=== PATIENT | male | born 2005 | race Caucasian/White ===

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

== ENCOUNTER 2023-11-29 10:03 | Emergency (ER) | payer OTHER, SELFPAY ==
[2023-11-29] VITALS (7 sets, daily range): BP systolic 106–156; BP diastolic 54–78; PULSE 66–100; RESP 13–16; TEMP 36.7; O2SAT 98–100; BMI 28.3
--- NOTE | 2023-11-29 10:12 | ECG_ITS ---
APPROVED REPORT Exam: Resting ECG HR:90 bpm ECG Measurements Heart Rate 90 AXES NC 164 P 70 QRSd 92 QRS 84 QT 324 T 48 QTc 372 Conclusion SINUS RHYTHM Electronically signed by : DAVID JO, 11/29/2023 12:41:23
--- NOTE | 2023-11-29 10:19 | CT_ITS ---
FINAL REPORT TECHNIQUE: Thin section axial CT images with coronal and sagittal reformats were performed after the administration of IV contrast. This study was performed with techniques to keep radiation doses as low as reasonably achievable (ALARA). Individualized dose reduction techniques using automated exposure control or adjustment of mA and/or kV according to the patient''s size were employed. 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 No fluid collection is seen to suggest an abscess. The oropharynx, hypopharynx, larynx are unremarkable. There are several bilateral less than 5 mm thyroid nodules. There is no neck mass or adenopathy. IMPRESSION: Prominent nasopharyngeal soft tissue, likely lymphoid hyperplasia. Reviewed, Interpreted and Dictated by Felipe Hanks III, MD Transcribed by Shae Whalen Authenticated and [facility]
--- NOTE | 2023-11-29 10:33 | HMH.EDGENADL ---
Discharge Plan Disposition Patient Disposition: Home, Self-Care Prescriptions Prescriptions: New amoxicillin-pot clavulanate 875-125 mg tablet 1 tab PO BID 7 Days Qty: 14 0RF Referrals Follow up/Referrals: Provider,Referral, MD [Primary Care Provider] - See instructions Activity Restrictions/Add. Instructions Additional Instructions/Restrictions: Take antibiotic twice daily for 7 days. Call your family doctor to establish care for this visit to the emergency department and schedule follow-up within 48 hours to ensure improvement. If you have any worsening of your condition or any other concerning signs or symptoms, return to the emergency department or your primary care doctor for further evaluation. Clinical Impressions Clinical Impression: Peritonsillar cellulitis Discharge ED Provider: René Georges General Adult HPI General Chief complaint: PAIN Stated complaint: Left jaw pain going down neck Time Seen by Provider: 11/29/23 10:13 Mode of Arrival: Ambulatory Source of Information: Patient Limitations: No Limitations Description of Symptoms (Recalled from ER Triage Doc. by RN): pt presents to ED with c/o left sided jaw pain. symptoms began yesterday approx 5 pm. History of Present Illness HPI narrative: Is a 18-year-old male no relevant medical history presenting with left-sided ear and neck pain. Started yesterday around 5 PM. Associated with trismus pain opening the jaw, but able to do so. No voice changes, difficulty breathing, difficulty swallowing. Pain is mild to moderate intensity, starts at left TMJ/left ear and radiates down toward his left collarbone. Has not taken anything or noticed anything that makes it better. No fevers or chills, vomiting, difficulty or pain with range of motion of neck, outward signs of injury or deformity, history of this in the past. Please note that above description of symptoms, in this electronic medical record under categorization of recalled from ER triage doctor by RN are reflective of an initial nursing assessment, however, is not reflective of my full history and physical exam that was personally taken and clarified. Consequentially, this preceding description of symptoms, which may include the patient's categorized chief complaint in the EMR, do not reflect my personal clinical impression, and the ultimate description of history of present illness and patient stated complaints should be deferred to this section of the note. Unless stated otherwise or congruent with this section of the note, additional signs, symptoms, or incongruence should be interpreted as inaccurate with my clinical impression. Related Data Previous Rx's Medication Instructions Recorded amoxicillin 875 mg-potassium 1 tab PO BID 7 days #14 tabs 11/29/23 clavulanate 125 mg tablet Allergies Allergy/AdvReac Type Severity Reaction Status Date / Time red dye [RED DYE] Allergy Unknown VOMITS AND Verified 04/25/20 13:13 BREAKS OUT [facility] Disclaimer: The information contained in this section may have been updated after the patient was seen, as this information can be updated by other users. Social History Smoking Status: Current every day smoker alcohol intake: never current occupational status: unemployed Travel in the last 8 weeks: None ROS Obtained: Yes All systems reviewed & no additional complaints except as documented Physical Exam General General appearance: alert and in no apparent distress Head Head exam: atraumatic and normocephalic Eye Eye exam: Present normal appearance, PERRL and EOMI ENT ENT exam: Present mucous membranes moist and other (Asymmetric palate elevation with deviation of the uvula toward the right. Flattening of left tonsillar pillar. Tender and fluctuant. No range of motion of neck difficulties, left stridor, outward signs of abnormality. Tolerating secretions without issue.) Neck Neck exam: Present normal inspection, full ROM and trachea midline Respiratory Respiratory exam: Absent respiratory distress, wheezes, stridor, accessory muscle use or prolonged expiratory phase Cardiovascular Cardiovascular exam: Present normal rhythm Abdominal Exam Abdominal exam: Present soft; Absent distention, tenderness, guarding, rebound or rigidity Extremities Exam Extremities exam: Absent edema Neurological Exam Neurological exam: Present alert, oriented X3, CN II-XII intact and normal gait; Absent motor sensory deficit Skin Skin exam: Present warm and dry; Absent diaphoresis or erythema Medical Decision Making Medical Records Medical records reviewed: Yes I reviewed the patient's medical records. John Inquiry Pt receiving controlled substance: No John was queried for this patient: No Vital Signs: 11/29/23 10:05 11/29/23 11:00 11/29/23 11:30 Temperature 98.0 F Temperature Source Oral Pulse Rate 73 66 Pulse Rate [Left Radial] 100 H Respiratory Rate 13 Blood Pressure 109/58 L 106/64 L Blood Pressure [Right Arm] 156/78 H Blood Pressure Mean [Right Arm] 104 02 Sat by Pulse Oximetry 100 99 98 Oxygen Delivery Method Room Air Room Air Room Air 11/29/23 12:00 11/29/23 12:30 Temperature Temperature Source Pulse Rate 67 82 Pulse Rate [Left Radial] Respiratory Rate Blood Pressure 111/63 119/54 L Blood Pressure [Right Arm] Blood Pressure Mean [Right Arm] 02 Sat by Pulse Oximetry 98 98 Oxygen Delivery Method Room Air Room Air Lab Data Lab Results 11/29/23 10:22: Group A Strep Rapid Negative 11/29/23 10:30: WBC 10.7, RBC 5.75, Hgb 16.9, Hct 51.5, MCV 89.5, MCH 29.4, MCHC 32.8, RDW 13.7, Plt Count 185, MPV 8.8, Neut % (Auto) 76.3, Lymph % (Auto) 16.7, [place] % (Auto) 3.2, Eos % (Auto) 2.7, Baso % (Auto) 1.1, Neut # (Auto) 8.2 H, Lymph # (Auto) 1.8, [place] # (Auto) 0.3, Eos # (Auto) 0.3, Baso # (Auto) 0.1, Sodium 139, Potassium 3.7, Chloride 104, Carbon Dioxide 26, Anion Gap 12.7, BUN 13, Creatinine 1.00, Estimated Creat Clear 125, Estimated GFR 95, Est GFR ( Amer) 115, Glucose 106 H, Lactate 1.2, Calcium 9.8, Total Bilirubin 1.7 H, AST 29, ALT 32, Alkaline Phosphatase 94, Total Protein 7.8, Albumin 4.6, Globulin 3.2, Albumin/Globulin Ratio 1.4 11/29/23 10:30 11/29/23 10:30 Orders (Tests/Meds): ED MEDICATIONS Discontinued Medications Generic Name Dose Route Start Last Admin Trade Name Marivel PRN Reason Stop Dose Admin Dexamethasone 10 mg 11/29/23 12:41 11/29/23 12:46 Dexamethasone 4mg Tablet PO 11/29/23 12:42 10 mg ONCE ONE Administration Iopamidol 75 ml 11/29/23 10:36 11/29/23 10:37 Iopamidol-370 (76%);100ml Bottle IV 11/29/23 10:37 75 ml ONCE ONE Administration Ketorolac Tromethamine 15 mg 11/29/23 10:37 11/29/23 10:51 Ketorolac 30mg/Ml Vial IV 11/29/23 10:38 15 mg ONCE ONE Administration Sodium Chloride 10 ml 11/29/23 10:36 11/29/23 10:37 Sodium Chloride 0.9% 10ml Syr (Rad Only) IV 11/29/23 10:37 10 ml ONCE ONE Administration ORDERS Category Date Time Status CT soft tissue neck w con Stat Cat Scan 11/29/23 10:19 Taken CBC w/Auto Diff [Complete Blood Count Auto Diff] Stat Lab 11/29/23 10:30 Completed CMP [Comprehensive Metabolic Panel] Stat Lab 11/29/23 10:30 Completed Lactic Acid Stat Lab 11/29/23 10:30 Completed Strep Scrn Group A (Rapid) Stat Lab 11/29/23 10:22 Completed Blood Culture Stat Micro 11/29/23 10:30 Received Strep Screen Confirmation Stat Micro 11/29/23 10:22 Received Medical Decision Narrative: Is a 18-year-old male no relevant medical history presenting with left-sided ear and neck pain. Started yesterday around 5 PM. Associated with trismus pain opening the jaw, but able to do so. No voice changes, difficulty breathing, difficulty swallowing. Pain is mild to moderate intensity, starts at left TMJ/left ear and radiates down toward his left collarbone. Has not taken anything or noticed anything that makes it better. No fevers or chills, vomiting, difficulty or pain with range of motion of neck, outward signs of injury or deformity, history of this in the past. History was obtained via conversation with patient. On arrival, patient hemodynamically stable, alert, oriented x4, appropriate, GCS 15, moving all extremities spontaneously, pupils equal and reactive to light. Full physical exam performed and significant for asymmetric palate elevation with flattening of the left tonsillar pillar and deviation of the uvula to the right. No lymphadenopathy. Patient does have trismus with palpation of left TMJ with jaw opening. No stridor, range of motion abnormalities, meningismus, outward signs of abnormality, or abnormal otic exam findings.. 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 Patient was given Decadron p.o. for symptomatic management and correction of underlying abnormalities. Workup independently interpreted and significant for nonactionable hematologic labs. CT of the neck with what appears to be phlegmon in the left peritonsillar region. No obvious abscess. Radiology on initial preliminary read did not mention any concern for fluid collection. See radiology read for full review of final results. On reevaluation, patient resting comfortably in bed. Given patient presentation, workup, history, this most likely represents peritonsillar infection. Because patient at baseline without signs or symptoms of clinical decompensation, deemed appropriate for discharge. Results were relayed to patient who voiced understanding and were agreeable to outpatient management and follow up. I discussed my clinical impression with patient and answered all questions. At this time, the evidence for any other entities in the differential is insufficient to warrant any further testing or ED observation. This was explained as well. Advisory was given that persistent or worsening symptoms require further evaluation. I confirmed the understanding of this discussion. Critical Care Critical Care Time Critical Care Time: No
--- NOTE | 2023-11-29 10:35 | PC.NURSE ---
pt to ct at this time
[2023-11-29] MEDS: SODIUM CHLORIDE 0.9% 10ML SYR (RAD ONLY) 10 ML IV (10:37)
[2023-11-29] MEDS: IOPAMIDOL-370 (76%);100ML BOTTLE 75 ML IV (10:37)
[2023-11-29 10:41] LABS: Basophils # 0.1 K/mm3 (0-0.2); Basophils % 1.1 % (0.1-2.0); Eosinophils # 0.3 K/mm3 (0.0-0.4); Eosinophils % 2.7 % (0.1-12.0); Hematocrit 51.5 % (42.0-52.0); Hemoglobin 16.9 g/dL (14.1-18.0); Lymphocytes # 1.8 K/mm3 (0.7-4.5); Lymphocytes % 16.7 % (10-50); Mean Corpuscular HGB Conc 32.8 g/dL (31.8-35.4); Mean Corpuscular Hemoglobin 29.4 pg (27.0-31.2); Mean Corpuscular Volume 89.5 fl (80-94); Mean Platelet Volume 8.8 fl (7.4-10.4); Monocytes # 0.3 K/mm3 (0.1-1.0); Monocytes % 3.2 % (1.7-9.3); Neutrophils # 8.2 K/mm3 (1.8-7.8); Neutrophils % 76.3 % (37.0-80.0); Platelet Count 185 K/mm3 (142-424); Red Blood Count 5.75 M/mm3 (4.60-6.20); Red Cell Distribution Width 13.7 % (11.5-17.5); White Blood Count 10.7 K/mm3 (4.5-13.0)
[2023-11-29 10:49] LABS: Lactic Acid 1.2 mmol/L (0.7-2.1)
[2023-11-29 10:50] LABS: Alanine Aminotransferase 32 U/L (12-78); Albumin Level 4.6 g/dl (3.5-5.0); Albumin/Globulin Ratio 1.4 (1.1-1.8); Alkaline Phosphatase 94 U/L (38-126); Anion Gap 12.7 mEq/L (5-15); Aspartate Amino Transferase 29 U/L (17-59); Bilirubin,Total 1.7 mg/dl (0.2-1.3); Blood Urea Nitrogen 13 mg/dl (9-20); Calcium 9.8 mg/dl (8.4-10.2); Carbon Dioxide 26 mmol/L (22.0-30.0); Chloride 104 mmol/L (98-107); Creatinine Clearance Estimated 125 mL/min (50-200); Estimated Glomerular Filt Rate 95 ml/min (>60); GFR (African American) 115 ML/MIN (>60); Globulin 3.2 g/dL (1.3-3.2); Glucose 106 mg/dl (74-100); Potassium 3.7 mmoL/L (3.5-5.1); Sodium 139 mmol/L (136-145); Total Protein,Serum 7.8 g/dl (6.3-8.2)
[2023-11-29] MEDS: KETOROLAC 30MG/ML VIAL 15 MG IV (10:51)
[2023-11-29 11:17] LABS: Strep Scrn Group A (Rapid) Negative (Negative)
--- NOTE | 2023-11-29 11:45 | PC.NURSE ---
ROUNDED ON PT NO NEEDS AT THIS TIME CALL LIGHT IN REACH
[2023-11-29] MEDS: DEXAMETHASONE 4MG TABLET 10 MG PO (12:46)
--- NOTE | 2023-11-29 12:50 | PC.NURSE ---
MOLLY IS ROUNDING ON PT
== END 2023-11-29 13:19 | disposition home or self-care (01) ==
PROVIDERS: Emergency Provider Emergency Medicine
DX: J36 Peritonsillar abscess; R68.84 Jaw pain; M54.2 Cervicalgia; H92.02 Otalgia, left ear; F17.210 Nicotine dependence, cigarettes, uncomplicated
CPT/HCPCS: 70491; 80053; 83605; 85025; 87040; 87430; 93005; 96374; 99285; Q9967

== ENCOUNTER 2024-06-06 14:39 | Emergency (ER) | payer SELFPAY ==
[2024-06-06 14:40] VITALS: BP 146/94; PULSE 79; RESP 18; TEMP 36.6; O2SAT 98; BMI 29.2
--- NOTE | 2024-06-06 14:41 | ED_ITS ---
Discharge Plan Prescriptions Prescriptions: New amoxicillin-pot clavulanate 875-125 mg tablet 1 tab PO BID Qty: 20 0RF No Action amoxicillin-pot clavulanate 875-125 mg tablet 1 tab PO BID 7 Days Qty: 14 0RF Referrals Follow up/Referrals: Provider,Referral, [Primary Care Provider] - See instructions Activity Restrictions/Add. Instructions Additional Instructions/Restrictions: As we discussed please call make an appointment with a dentist to have the evaluation for your tooth pain and possible extraction. I have called in an antibiotic for you please take it till it is complete. Return for any worsening signs or symptoms including difficulty to speak talk or breathe or fever increasing pain. Clinical Impressions Clinical Impression: Dentalgia, Dental caries Instructions Patient Instructions: DI for Tooth Decay, DI for Dental Pain Print Language Print Language: Azeri Discharge ED Provider: Wyatt Corey General Adult HPI <MIRANDA Rodriguez - Last Filed: 06/06/24 15:00> General Chief complaint: Dental/Oral Stated complaint: jaw/ear pain, L side Time Seen by Provider: 06/06/24 14:41 History of Present Illness HPI narrative: Patient presents for evaluation of tooth pain. Patient has had left lower molar pain for approximately a month. He has tried Orajel and it works intermittently. However patient was reading about dental pain on [employer] and got worried that he might have an abscess that could go to his brain. He denies any fever chills hemoptysis hematochezia melena difficulty with phonation difficulty with swallowing. He also states pain radiates to his left ear. But he has no loss of hearing. Related Data Previous Rx's ?Medication ?Instructions ?Recorded amoxicillin 875 mg-potassium 1 tab PO BID 7 days #14 tabs 11/29/23 clavulanate 125 mg tablet amoxicillin 875 mg-potassium 1 tab PO BID #20 tabs 06/06/24 clavulanate 125 mg tablet Allergies Allergy/AdvReac Type Severity Reaction Status Date / Time red dye (RED DYE) Allergy Unknown VOMITS AND Verified 04/25/20 13:13 BREAKS OUT [facility] <MIRANDA Rodriguez - Last Filed: 06/06/24 15:00> [facility] Disclaimer: The information contained in this section may have been updated after the patient was seen, as this information can be updated by other users. Social History (Updated 06/06/24 @ 15:00 by MIRANDA Rodriguez) Smoking Status: Current every day smoker alcohol intake: never current occupational status: unemployed Travel in the last 8 weeks: None Other Medical History Have you received the Flu Vaccine for this season: No Have you received the Pneumonia Vaccine: No <MIRANDA Rodriguez - Last Filed: 06/06/24 15:00> ROS Obtained: Yes Systems reviewed as appropriate & no additional complaints except as documented Physical Exam <MIRANDA Rodriguez - Last Filed: 06/06/24 15:00> General General appearance: alert and in no apparent distress Respiratory Respiratory exam: Present normal lung sounds bilaterally Cardiovascular Cardiovascular exam: Present regular rate Neurological Exam Neurological exam: Present alert and oriented X3 Medical Decision Making <MIRANDA Rodriguez - Last Filed: 06/06/24 15:00> Medical Records Screening: Per USPSTF and CDC recommendations, given the prevalence of disease in our region, it is our hospital?s policy to screen for HIV and viral Hepatitis for all patients aged 18 and over and those with ongoing risk factors. John Inquiry Pt receiving controlled substance: No Vital Signs: 06/06/24 14:40 06/06/24 14:56 Temperature 97.9 F 97.9 F Temperature Source Oral Oral Pulse Rate 75 Pulse Rate [Radial] 79 Respiratory Rate 18 16 Blood Pressure 140/90 Blood Pressure [Right Arm] 146/94 H Blood Pressure Mean [Right Arm] 111 Blood Pressure Source Automatic Cuff Blood Pressure Source [Right Arm] Automatic Cuff Blood Pressure Position [Right Arm] Sitting 02 Sat by Pulse Oximetry 98 Oxygen Delivery Method Room Air Room Air Orders (Tests/Meds): ED MEDICATIONS Generic Name Dose Route Start Last Admin Trade Name Freq PRN Reason Stop Dose Admin Amoxicillin/Clavulanate Potassium 1 each 06/06/24 14:48 06/06/24 15:00 Amoxicillin/Clavulanate Potassium 875/125mg Tablet PO 06/06/24 14:49 1 each ONCE ONE Administration ORDERS Category Date Time Status HIV (1&2) Antibody Rapid Stat Lab 06/06/24 14:46 Ordered Hep C Ab with Reflex to RNA Stat Lab 06/06/24 14:46 Ordered Medical Decision Narrative: In summary patient is a 19-year-old male who presents to the emergency department for evaluation of dentalgia. Patient is hemodynamically stable upon arrival, afebrile. Physical exam is remarkable for dental caries of several teeth with the offending tooth being the left lower second molar. There is no gingivitis there is no abscess the floor of his mouth is supple with no woodiness he has no cervical lymphadenopathy. Tympanic membrane on the left is normal and external auditory canal is normal. Differential diagnosis includes dentalgia versus infection etc. Initial workup with labs and imaging was considered however patient has no red flags of developing abscess currently thus deferred. Initial interventions include Augmentin p.o. Given his benign appearing GONGORA and no red flags for any deep space infection patient is appropriate for discharge and referral to dentistry with a prescription of Augmentin with first dose given here and strict return precautions. <Wyatt Corey MD - Last Filed: 06/06/24 15:02> Vital Signs: 06/06/24 14:40 06/06/24 14:56 Temperature 97.9 F 97.9 F Temperature Source Oral Oral Pulse Rate 75 Pulse Rate [Radial] 79 Respiratory Rate 18 16 Blood Pressure 140/90 Blood Pressure [Right Arm] 146/94 H Blood Pressure Mean [Right Arm] 111 Blood Pressure Source Automatic Cuff Blood Pressure Source [Right Arm] Automatic Cuff Blood Pressure Position [Right Arm] Sitting 02 Sat by Pulse Oximetry 98 Oxygen Delivery Method Room Air Room Air Orders (Tests/Meds): ED MEDICATIONS Generic Name Dose Route Start Last Admin Trade Name Freq PRN Reason Stop Dose Admin Amoxicillin/Clavulanate Potassium 1 each 06/06/24 14:48 06/06/24 15:00 Amoxicillin/Clavulanate Potassium 875/125mg Tablet PO 06/06/24 14:49 1 each ONCE ONE Administration ORDERS Category Date Time Status HIV (1&2) Antibody Rapid Stat Lab 06/06/24 14:46 Ordered Hep C Ab with Reflex to RNA Stat Lab 06/06/24 14:46 Ordered Medical Decision Narrative: In summary patient is a 19-year-old male who presents to the emergency department for evaluation of dentalgia. Patient is hemodynamically stable upon arrival, afebrile. Physical exam is remarkable for dental caries of several teeth with the offending tooth being the left lower second molar. There is no gingivitis there is no abscess the floor of his mouth is supple with no woodiness he has no cervical lymphadenopathy. Tympanic membrane on the left is normal and external auditory canal is normal. Differential diagnosis includes dentalgia versus infection etc. Initial workup with labs and imaging was considered however patient has no red flags of developing abscess currently thus deferred. Initial interventions include Augmentin p.o. Given his benign appearing GONGORA and no red flags for any deep space infection patient is appropriate for discharge and referral to dentistry with a prescription of Augmentin with first dose given here and strict return precautions. I was consulted by the JANEE, and we discussed the complexity of the problems being addressed. I approved the treatment and management plan for this patient's care in the emergency department, thus performing a substantive portion of the medical decision making. Wyatt Corey MD Critical Care <MIRANDA Rodriguez - Last Filed: 06/06/24 15:00> Critical Care Time Critical Care Time: No
[2024-06-06 14:56] VITALS: BP 140/90; PULSE 75; RESP 16; TEMP 36.6; O2SAT 98
[2024-06-06] MEDS: AMOXICILLIN/CLAVULANATE POTASSIUM 875/125MG TABLET 1 EACH PO (15:00)
== END 2024-06-06 15:03 | disposition home or self-care (01) ==
PROVIDERS: Emergency Provider Emergency Medicine
DX: K02.9 Dental caries, unspecified (principal); K08.89 Other specified disorders of teeth and supporting structures; H92.02 Otalgia, left ear
CPT/HCPCS: 99283

== ENCOUNTER 2024-06-16 01:19 | Emergency (ER) | payer SELFPAY ==
[2024-06-16 01:30] VITALS: BP 150/105; PULSE 119; RESP 18; TEMP 37.7; O2SAT 98; BMI 29.2
--- NOTE | 2024-06-16 01:35 | HMH.EDGENADL ---
Discharge Plan Disposition Patient Disposition: Xfer Short-Term Hosp Prescriptions Prescriptions: No Action amoxicillin-pot clavulanate 875-125 mg tablet 1 tab PO BID 7 Days Qty: 14 0RF amoxicillin-pot clavulanate 875-125 mg tablet 1 tab PO BID Qty: 20 0RF Referrals Follow up/Referrals: Provider,Referral, [Primary Care Provider] - See instructions Clinical Impressions Clinical Impression: Dental caries, Dental infection, Congested nose, Otalgia, bilateral, Angina, Vimal Print Language Print Language: Citizen Of [place] Discharge ED Provider: Tanna Moralez General Adult HPI General Chief complaint: Dental/Oral Stated complaint: jaw pain Time Seen by Provider: 06/16/24 01:25 History of Present Illness HPI narrative: 19-year-old male presents to the ER with complaints of dental/jaw pain and borderline fever for the last few days. He reports he has bad teeth and is scheduled to see a dentist this coming week. Reviewing his record here I can see he has been seen for dental caries and dental pain recently. Records indicate that patient was prescribed Augmentin at his visit on June 06, when I inquired about this, he reports he has not taken it because he did not pick it up yet. He cites insurance problems as the reason. He and family at bedside states they are picking the prescription up tomorrow, but since his pain was worsening he came to the ER for reevaluation hoping he did not have an abscess because he was afraid it could become sepsis. He reports he was googling his symptoms. Patient reports he is having worsening pain, decreased appetite, he reports feeling feverish at home. He states he has been taking Tylenol and ibuprofen intermittently for pain without significant relief. He denies any difficulty breathing or swallowing, he stated he was having neck pain however when questioned about this, he points to the space behind his left jaw where he has an inflamed node. He reports developing bilateral ear pain and congestion with mild cough in the last 1-2 days as well as nausea and vomiting. No diarrhea, abdominal pain, headache, dizziness, or other associated symptoms. Related Data Previous Rx's ?Medication ?Instructions ?Recorded amoxicillin 875 mg-potassium 1 tab PO BID 7 days #14 tabs 11/29/23 clavulanate 125 mg tablet amoxicillin 875 mg-potassium 1 tab PO BID #20 tabs 06/06/24 clavulanate 125 mg tablet Allergies Allergy/AdvReac Type Severity Reaction Status Date / Time red dye (RED DYE) Allergy Unknown VOMITS AND Verified 06/07/24 06:51 [facility] OUT [facility] Disclaimer: The information contained in this section may have been updated after the patient was seen, as this information can be updated by other users. Social History (System 06/07/24 @ 06:51 by Ayah Valadez) Smoking Status: Current every day smoker alcohol intake: never current occupational status: unemployed Other Medical History Have you received the Flu Vaccine for this season: No Have you received the Pneumonia Vaccine: No ROS Obtained: Yes Systems reviewed as appropriate & no additional complaints except as documented ROS per HPI Physical Exam General General appearance: alert and in no apparent distress Head Head exam: atraumatic and normocephalic Eye Eye exam: Present PERRL and EOMI ENT ENT exam: Present normal oropharynx (No posterior oropharyngeal erythema, palate elevates symmetrically, no tonsillomegaly or exudates), mucous membranes moist and other (Bilateral tympanic membrane erythema and bulging but no purulent effusion; single swollen, tender left submandibular lymph node near the angle of the jaw without erythema, fluctuance, no findings of cellulitis, no findings of Vimal angina) Expanded ENT Exam TM/Canal exam: Bilateral TM: erythema and bulging Mouth exam: Absent trismus Teeth numbered Image: 1. Dental Tenderness (Tenderness along the base of teeth 18 and 19 without fracture or abscess) Throat exam: Present normal inspection; Absent tonsillar erythema, tonsillomegaly or muffled voice Comment: No sublingual or submandibular swelling, no woodiness, floor of mouth is supple Neck Neck exam: Present normal inspection and full ROM Chest Chest inspection: Present symmetric chest wall rise Respiratory Respiratory exam: Absent respiratory distress or stridor Cardiovascular Cardiovascular exam: Present regular rate and normal rhythm Extremities Exam Extremities exam: Present full ROM Neurological Exam Neurological exam: Present alert and oriented X3; Absent motor sensory deficit Psychiatric Psychiatric exam: Present normal affect and normal mood Skin Skin exam: Present warm and dry Medical Decision Making Medical Records Medical records reviewed: Yes I reviewed the patient's medical records. Screening: Per USPSTF and CDC recommendations, given the prevalence of disease in our region, it is our hospital?s policy to screen for HIV and viral Hepatitis for all patients aged 18 and over and those with ongoing risk factors. MR Comment: Patient evaluated recently for dental pain and prescribed Augmentin, see HPI for details. Patient also evaluated in November and had neck pain and ear pain, identified to have peritonsillar cellulitis. John Inquiry Pt receiving controlled substance: No Vital Signs: 06/16/24 01:30 06/16/24 02:03 Temperature 100 F H Temperature Source Oral Pulse Rate 99 H Pulse Rate [Left Radial] 119 H Respiratory Rate 18 Blood Pressure 138/81 Blood Pressure [Right Arm] 150/105 H Blood Pressure Mean [Right Arm] 120 Blood Pressure Source [Right Arm] Automatic Cuff Blood Pressure Position [Right Arm] Sitting 02 Sat by Pulse Oximetry 98 97 Oxygen Delivery Method Room Air Lab Data Lab Results 06/16/24 01:28: WBC 11.5 H, RBC 5.73, Hgb 16.7, Hct 47.9, MCV 83.7, MCH 29.1, MCHC 34.8, RDW 13.5, Plt Count 184, MPV 8.1, Neut % (Auto) 78.6, Lymph % (Auto) 14.4, Duc[place]ne % (Auto) 4.6, Eos % (Auto) 1.1, Baso % (Auto) 1.3, Neut # (Auto) 9.0 H, Lymph # (Auto) 1.7, [place]ne # (Auto) 0.5, Eos # (Auto) 0.1, Baso # (Auto) 0.1, Sodium 139, Potassium 4.0, Chloride 101, Carbon Dioxide 28, Anion Gap 14.0, BUN 10, Creatinine 1.00, Estimated Creat Clear 127, Estimated GFR 94, Est GFR ( Amer) 114, Glucose 114 H, Calcium 9.4, Total Bilirubin 1.0, AST 37, ALT 46, Alkaline Phosphatase 71, C-Reactive Protein 72.9 H, Total Protein 8.0, Albumin 4.6, Globulin 3.4 H, Albumin/Globulin Ratio 1.4, HIV 1&2 Antibody Rapid Nonreactive 06/16/24 01:40: SARS-CoV-2 (PCR) Not detected, Influenza A Untype (PCR) Not detected, Influenza Type B (PCR) Not detected 06/16/24 01:28 06/16/24 01:28 Orders (Tests/Meds): ED MEDICATIONS Generic Name Dose Route Start Last Admin Trade Name Freq PRN Reason Stop Dose Admin Dexamethasone Sodium Phosphate 10 mg 06/16/24 03:27 Dexamethasone 4mg/Ml 1ml Vial IV 06/16/24 03:28 ONCE ONE Sodium Chloride 10 ml 06/16/24 02:45 06/16/24 02:46 Sodium Chloride 0.9% 10ml Syr (Rad Only) IV 07/16/24 02:44 10 ml NEEDED PRN Administration Maintain IV Site Discontinued Medications Generic Name Dose Route Start Last Admin Trade Name Marivel PRN Reason Stop Dose Admin Acetaminophen 1,000 mg 06/16/24 01:29 06/16/24 01:37 Acetaminophen 500mg Tab PO 06/16/24 01:30 1,000 mg ONCE ONE Administration Amoxicillin/Clavulanate Potassium 1 each 06/16/24 01:29 06/16/24 01:37 Amoxicillin/Clavulanate Potassium 875/125mg Tablet PO 06/16/24 01:30 1 each ONCE ONE Administration Benzocaine/Butamben/Tetracaine HCl 1 gm 06/16/24 01:29 06/16/24 01:37 Tetracaine/Benzocaine/Butamben 56 Gm [place] TP 06/16/24 01:30 1 gm ONCE ONE Administration Ibuprofen 800 mg 06/16/24 01:30 06/16/24 01:37 Ibuprofen 800 Mg Tablet PO 06/16/24 01:31 800 mg ONCE ONE Administration Iopamidol 75 ml 06/16/24 02:45 06/16/24 02:46 Iopamidol-370 (76%);100ml Bottle IV 06/16/24 02:46 75 ml ONCE ONE Administration Lidocaine HCl 15 ml 06/16/24 01:29 06/16/24 01:37 Lidocaine 2% Viscous Liz 15ml Udc PO 06/16/24 01:30 15 ml ONCE ONE Administration ORDERS Category Date Time Status CT soft tissue neck w con Stat Cat Scan 06/16/24 02:24 Completed CBC w/Auto Diff [Complete Blood Count Auto Diff] Stat Lab 06/16/24 01:28 Completed CMP [Comprehensive Metabolic Panel] Stat Lab 06/16/24 01:28 Completed CRP [C-Reactive Protein] Stat Lab 06/16/24 01:28 Completed HIV (1&2) Antibody Rapid Stat Lab 06/16/24 01:28 Completed Hep C Ab with Reflex to RNA Stat Lab 06/16/24 01:28 Received Rapid PCR Covid and Flu A/B Stat Lab 06/16/24 01:40 Completed Medical Decision Narrative: In summary, this 19-year-old male presents to the emergency department today with dental pain, jaw pain, ear pain. On initial evaluation patient is hemodynamically stable, afebrile, tachycardia that was present on triage vitals was absent on my exam, his heart rate was in the 70s and 80s during my exam. Patient has poor dentition throughout with multiple caries, tenderness to palpation at the base of teeth 18 and 19 without fracture or abscess appreciated, no trismus the patient has tenderness to palpation of the left TMJ, patient has bilateral tympanic membrane erythema and bulging, he has enlarged and tender lymph node at the left mandibular angle but it is soft, no fluctuance, range of motion of the neck is full, patient has a patent airway with no stridor, floor of the mouth is supple. Differential diagnosis includes but is not limited to dental caries, dental infection, I considered dental abscess, I considered Vimal's angina but patient has no woodiness of the floor of the mouth, no cellulitis, no trismus, no submandibular or sublingual swelling, patient had a slightly elevated temperature but not a true fever and he has been more than 8 hours since any antipyretic. I also considered the possibility of viral syndrome with patient's congestion, mild cough, and bilateral tympanic membrane erythema with nonpurulent effusion. I do not appreciate findings consistent with otitis media. Based on these concerns, I ordered basic serum labs since patient has been noncompliant with a prescribed antibiotic regimen for more than 1 week ago, as well as a viral swab and inflammatory marker. Patient received Tylenol, ibuprofen, Augmentin for treatment. Dental balls also applied. Labs personally reviewed demonstrate very slight leukocytosis with WBC 11.5, this is nonspecific, he has no anemia, normal platelets. CMP nonactionable, CRP is elevated at 72.9 which is nonspecific but consistent with findings of dental infection, possible viral infection with the congestion, cough, and ear findings, as well as the isolated lymphadenopathy. These labs do not specifically rule in or out any pathology but since the CRP is more elevated than it ever has been in the past based on my review of patient's previous records and his WBC is elevated, with his symptoms I believe it is most appropriate to perform CT to further evaluate for possible Vimal's angina or other deep space infection. CT imaging personally interpreted demonstrates enlarged lymph nodes in the left submandibular space consistent with the findings on exam, there is also some mild associated surrounding edema, no obvious abscess appreciated. See radiology read for full interpretation. I called the reading radiologist and discussed the CT imaging with him, he states this patient likely has very early Vimal's angina as this is obviously more than a simple dental infection, he does state there is no obvious periosteal breakdown at any teeth which she would typically see with a dental infection but he is concerned for early developing deep space infection. Patient received IV dexamethasone. I discussed this case with transfer center Dr. Zheng given my concern of developing deep space infection in the submandibular area as well as the patient not being able to pickling grader his antibiotics for 24 hours. After discussing this case and the findings on imaging with the transfer center physician, he accepted the patient for ED to ED transfer to [facility]. Since patient already received oral Augmentin, he did not recommend IV Unasyn at this time. I discussed these recommendations with the patient, he is agreeable to transfer. He will go via ambulance due to the potential for continued progression of infection leading to airway risks though there are no findings of this at this time. Patient transferred in stable condition with no stridor, patent airway, reassuring vitals. Critical Care Critical Care Time Critical Care Time: No
[2024-06-16] MEDS: AMOXICILLIN/CLAVULANATE POTASSIUM 875/125MG TABLET 1 EACH PO (01:37)
[2024-06-16] MEDS: IBUPROFEN 800 MG TABLET PO (01:37)
[2024-06-16] MEDS: TETRACAINE/BENZOCAINE/BUTAMBEN 56 GM SPRAY TP (01:37)
[2024-06-16] MEDS: ACETAMINOPHEN 500MG TAB 1000 MG PO (01:37)
[2024-06-16] MEDS: LIDOCAINE 2% VISCOUS SOL 15ML UDC 15 ML PO (01:37)
[2024-06-16 01:39] LABS: Basophils # 0.1 K/mm3 (0-0.2); Basophils % 1.3 % (0.1-2.0); Eosinophils # 0.1 K/mm3 (0.0-0.4); Eosinophils % 1.1 % (0.1-12.0); Hematocrit 47.9 % (42.0-52.0); Hemoglobin 16.7 g/dL (14.1-18.0); Lymphocytes # 1.7 K/mm3 (0.7-4.5); Lymphocytes % 14.4 % (10-50); Mean Corpuscular HGB Conc 34.8 g/dL (31.8-35.4); Mean Corpuscular Hemoglobin 29.1 pg (27.0-31.2); Mean Corpuscular Volume 83.7 fl (80-94); Mean Platelet Volume 8.1 fl (7.4-10.4); Monocytes # 0.5 K/mm3 (0.1-1.0); Monocytes % 4.6 % (1.7-9.3); Neutrophils % 78.6 % (37.0-80.0); Platelet Count 184 K/mm3 (142-424); Red Blood Count 5.73 M/mm3 (4.60-6.20); Red Cell Distribution Width 13.5 % (11.5-17.5); White Blood Count 11.5 K/mm3 (4.8-10.8)
[2024-06-16 01:49] LABS: Coronavirus 19, PCR Not Detected (NotDetected); Influenza A, PCR Not Detected (NotDetected); Influenza B, PCR Not Detected (NotDetected)
[2024-06-16 01:50] LABS: Alanine Aminotransferase 46 U/L (12-78); Albumin Level 4.6 g/dl (3.5-5.0); Albumin/Globulin Ratio 1.4 (1.1-1.8); Alkaline Phosphatase 71 U/L (38-126); Aspartate Amino Transferase 37 U/L (17-59); Blood Urea Nitrogen 10 mg/dl (9-20); Calcium 9.4 mg/dl (8.4-10.2); Carbon Dioxide 28 mmol/L (22.0-30.0); Chloride 101 mmol/L (98-107); Creatinine Clearance Estimated 127 mL/min (50-200); Estimated Glomerular Filt Rate 94 ml/min (>60); GFR (African American) 114 ML/MIN (>60); Globulin 3.4 g/dL (1.3-3.2); Glucose 114 mg/dl (74-100); Sodium 139 mmol/L (136-145)
[2024-06-16 01:57] LABS: C-Reactive Protein 72.9 mg/L (0-4)
[2024-06-16 02:03] VITALS: BP 138/81; PULSE 99; O2SAT 97
--- NOTE | 2024-06-16 02:24 | CT_ITS ---
PROCEDURE INFORMATION: Exam: CT Neck With Contrast Exam date and time: 06/16/2024 2:41 AM Age: 19 years old Clinical indication: Other: Jaw pain; Additional info: Jaw pain, dental infection, fever, wbc and crp up TECHNIQUE: Imaging protocol: Computed tomography of the neck with contrast. Radiation optimization: All CT scans at this facility use at least one of these dose optimization techniques: automated exposure control; mA and/or kV adjustment per patient size (includes targeted exams where dose is matched to clinical indication); or iterative reconstruction. Contrast material: ISOVUE; Contrast volume: 75 ml; Contrast route: IV; COMPARISON: CT SOFT TISSUE NECK W CON 11/29/2023 10:37 AM FINDINGS: Paranasal sinuses: Minor polypoid disease is noted in the floor of the left maxillary antrum. Nasal cavity: There is a leftward convexity deviation of the nasal septum with a nasal septal spur. Salivary glands: There is notable asymmetric enhancement of sublingual and submandibular glands on the left effacement of adjacent fat planes. No bony destruction or drainable fluid collection is identified at this time. Pharynx: Unremarkable. No significant tonsillar enlargement. Prevertebral and retropharyngeal spaces: Unremarkable. Larynx: Unremarkable. Epiglottis is normal. Thyroid: Normal. No enlarged or calcified nodules. Trachea: Visualized trachea is unremarkable. Lungs: Unremarkable as visualized. Lymph nodes: Reactive left level 1 B and 2A cervical lymphadenopathy is noted. Bones/joints: No acute fracture or destructive change. Soft tissues: Unremarkable. No significant soft tissue swelling. IMPRESSION: Left submandibular edema may be due to a sialadenitis. No drainable fluid collection. Reactive cervical lymphadenopathy.
[2024-06-16] MEDS: SODIUM CHLORIDE 0.9% 10ML SYR (RAD ONLY) 10 ML IV (02:46)
[2024-06-16] MEDS: IOPAMIDOL-370 (76%);100ML BOTTLE 75 ML IV (02:46)
[2024-06-16 03:11] LABS: HIV (1&2) Antibody Rapid NONREACTIVE (NONREACTIVE)
[2024-06-16 03:24] VITALS: BP 112/75; PULSE 90; O2SAT 99
[2024-06-16] MEDS: DEXAMETHASONE 4MG/ML 1ML VIAL 10 MG IV (03:42)
--- NOTE | 2024-06-16 03:52 | PC.NURSE ---
Report called to JESSICA Villatoro at [facility]
[2024-06-16 04:01] VITALS: BP 116/62; PULSE 87; O2SAT 98
[2024-06-16 04:09] VITALS: BP 116/62; PULSE 87; RESP 20; TEMP 36.9; O2SAT 98
[2024-06-18 05:11] LABS: HCV Ab Non Reactive (Non Reactive)
== END 2024-06-16 04:10 | disposition short-term general hospital (02) ==
PROVIDERS: Emergency Provider Emergency Medicine
DX: K12.2 Cellulitis and abscess of mouth (principal); K04.7 Periapical abscess without sinus; K02.9 Dental caries, unspecified; K08.89 Other specified disorders of teeth and supporting structures; H92.03 Otalgia, bilateral; R09.81 Nasal congestion; R05.9 Cough, unspecified; R11.2 Nausea with vomiting, unspecified
CPT/HCPCS: 70491; 80053; 85025; 86140; 86803; 87389; 87636; 96374; 99285; J1100; Q9967